=== PATIENT | male | born 1960 | race Caucasian/White ===

== ENCOUNTER → 2016-05-24 | Outpatient (CLI) | payer BC ==
--- NOTE | 2016-05-24 16:01 | CT ---
EXAMINATION TYPE: CT sinus wo con DATE OF EXAM: 05/24/2016 3:51 PM COMPARISON: NONE HISTORY: chronic sinus infections for 2-[address] DLP: 641.6 mGycm CONTRAST: None The paranasal sinuses are examined in the axial plane at 2 mm thick sections. Reconstructed images i n the coronal plane were obtained. There is dental amalgam scatter artifact There is minimal apical thickening inferior maxillary sinuses. The ethmoid air cells are clear. The sphenoid sinuses are clear. The frontal sinuses are clear. The septum is evaluated. There is septal deviation to the right. The ostiomeatal units are patent. IMPRESSIONS: 1. Minimal mucosal thickening maxillary sinuses.
== END | disposition home or self-care (01) ==
LOC: RADCTMAIN 15:26
PROVIDERS: ATTEND Otolaryngology
DX: J32.0 Chronic maxillary sinusitis (principal)
CPT/HCPCS: 70486

== ENCOUNTER → 2017-12-16 | Outpatient (CLI) | payer OTHER | END | disposition home or self-care (01) | LOC: LABWHC1 08:20 | PROVIDERS: ATTEND Internal Medicine | DX: E10.65 Type 1 diabetes mellitus with hyperglycemia (principal) | CPT/HCPCS: 36415; 83036 ==

== ENCOUNTER → 2018-04-23 | Outpatient (CLI) | payer OTHER ==
--- NOTE | 2018-04-23 07:44 | MR ---
EXAMINATION TYPE: MR lumbar spine wo con DATE OF EXAM: 04/23/2018 6:49 AM COMPARISON: NONE HISTORY: Sciatica CONTRAST: None Multiplanar, MultiSpin echo imaging of the lumbar spine was performed. L1-L2: Moderate disc desiccation. No significant disc bulging. No herniation protrusion or canal sten osis. L1 hemangioma noted. Foramina are patent. L2-L3: Moderate disc desiccation. No significant disc bulging. No herniation protrusion or canal sten osis. Foramina are patent. L3-L4: Moderate disc desiccation. Mild circumferential disc bulge. Mild effacement ventral thecal sac . Degenerative endplate marrow change. Schmorl node noted. No herniation protrusion or canal stenosis . Foramina are patent. L4-L5: Moderate disc desiccation. Circumferential disc bulge greatest posteriorly. Mild effacement ve ntral thecal sac. Facet joint arthropathy. No evidence for central stenosis or disc herniation. Bilat eral foraminal encroachment is noted to moderate in degree. Generative endplate marrow change identif ied. L5-S1: Severe disc desiccation. Grade 1 anterolisthesis L5 on S1 measuring 6 mm. Circumferential disc bulge greatest posteriorly with effacement of the ventral thecal sac. No evidence for central stenos is. Severe facet joint arthropathy with bilateral foraminal encroachment left greater than right. Lumbar segments are intact. No paraspinal masses are identified. Conus medullaris has a normal appe arance. There is ventral spondylosis. Multilevel degenerative endplate marrow change. Right-sided moreno al cyst upper pole measuring 1.5 cm. IMPRESSION: 1. Multilevel degenerative disc disease as discussed. 2. Grade 1 anterolisthesis L5 on S1. 3. Varying degrees of foraminal encroachment.
== END ==
LOC: RADMRIMAIN 06:03
PROVIDERS: ATTEND Family Medicine
DX: M43.17 Spondylolisthesis, lumbosacral region (principal); M51.16 Intervertebral disc disorders with radiculopathy, lumbar region
CPT/HCPCS: 72148

== ENCOUNTER → 2018-07-14 | Outpatient (CLI) | payer OTHER ==
[2018-07-14 16:34] LABS: Albumin 4.2 g/dL (3.80-4.90); Albumin/Globulin Ratio 1.83 (1.60-3.17); Calcium 9.4 mg/dL (8.7-10.3); Globulin 2.3 g/dL (1.6-3.3); LDL Cholesterol,Calculated 128.8 mg/dL (0.0-131.0); Potassium 4.3 mmol/L (3.5-5.5); Total Protein 6.5 g/dL (6.2-8.2); VLDL Calculation 26.2 mg/dL (5.00-40.00)
[2018-07-17 09:45] LABS: Hemoglobin A1C 5.3
== END | disposition home or self-care (01) ==
LOC: LABWHC1 08:16
PROVIDERS: ATTEND Internal Medicine
DX: E10.65 Type 1 diabetes mellitus with hyperglycemia (principal)
CPT/HCPCS: 36415; 80053; 80061; 82043; 82306; 82570; 82985; 83036; 84439; 84443

== ENCOUNTER 2018-11-12 07:41 | Day surgery (SDC) | payer OTHER ==
[2018-11-06 10:01] VITALS: BMI 34.2
[~2018-11-12 07:41] MED LIST: LACTATED RINGERS 1,000 ML IV SCH; LIDOCAINE 1% 20 ML VIAL (10MG/ML) FOR IV START INTRADERMA PRN
[2018-11-12 08:11] VITALS: RESP 18; TEMP 97.8
[2018-11-12 08:18] LABS: Glucose,Whole Blood 169 mg/dL (75-99)
[2018-11-12] MEDS ORDERED: LIDOCAINE 1% 20 ML VIAL (10MG/ML) FOR IV START INTRADERMA ONE (08:19)
[2018-11-12] MEDS ORDERED: LACTATED RINGERS 1,000 ML IV ONE (08:19)
[2018-11-12] MEDS ORDERED: PROPOFOL 10 MG/ML 20 ML VIAL IV ONE (08:56)
--- NOTE | 2018-11-12 09:03 | P.GSHP ---
History of Present Illness H&P Date: 11/12/18 Chief Complaint: History of colon polyps This a 58-year-old male presents today for colonoscopy. Patient has had previous colonoscopies. He is known to have colon polyps. His last colonoscopy 5 years ago. Past Medical History Past Medical History: Diabetes Mellitus, Hypertension, Osteoarthritis (OA) Additional Past Medical History / Comment(s): ALLERGIES, ARTHRITIS WITH BACK PAIN, HX OF COLON POLYPS, DIABETES WITH INSULIN PUMP. History of Any Multi-Drug Resistant Organisms: None Reported Past Surgical History: No Surgical Hx Reported Additional Past Surgical History / Comment(s): COLONOSCOPY Past Anesthesia/Blood Transfusion Reactions: No Reported Reaction Past Psychological History: Anxiety, Depression Smoking Status: Never smoker Past Alcohol Use History: Rare Past Drug Use History: None Reported - Past Family History Brother(s) Family Medical History: Cancer Medications and Allergies Home Medications Medication Instructions Recorded Confirmed Type Cholecalciferol (Vitamin D3) 1,000 unit PO DAILY 11/06/18 11/06/18 History [Vitamin D3] Fexofenadine HCl [Camille Allergy] 180 mg PO DAILY 11/06/18 11/06/18 History Gabapentin [Neurontin] 800 mg PO HS 11/06/18 11/06/18 History Ibuprofen [Motrin Ib] 400 mg PO DAILY 11/06/18 11/06/18 History Insulin Aspart (For Pump) [NovoLOG 0 unit SQ-PUMP CONTINUOUS PRN 11/06/18 11/06/18 History (For Pump)] Lisinopril [Zestril] 10 mg PO DAILY 11/06/18 11/06/18 History Sertraline [Zoloft] 50 mg PO DAILY 11/06/18 11/06/18 History metFORMIN HCL [Glucophage] 1,000 mg PO BID 11/06/18 11/06/18 History Allergies Allergy/AdvReac Type Severity Reaction Status Date / Time exenatide [From Bydureon] Allergy Severe Hives, Verified 11/06/18 09:48 Swelling, Hospital Tx. Surgical - Exam Vital Signs Temp Pulse Resp BP Pulse Ox 97.8 F 61 18 137/65 100 11/12/18 08:09 11/12/18 08:09 11/12/18 08:09 11/12/18 08:09 11/12/18 08:09 - General well developed, well nourished, no distress - Eyes PERRL - ENT normal pinna - Neck no masses - Respiratory normal expansion - Cardiovascular Rhythm: regular - Abdomen Abdomen: soft, non tender Results - Labs Abnormal Lab Results - Last 24 Hours (Table) 11/12/18 Range/Units 08:17 POC Glucose (mg/dL) 169 H (75-99) mg/dL Assessment and Plan Assessment: History of colon polyps. We'll perform colonoscopy.
--- NOTE | 2018-11-12 09:17 | P.OP ---
Date of Procedure: 11/12/18 Preoperative Diagnosis: History of colon polyps Postoperative Diagnosis: Right colon polyp Procedure(s) Performed: Colonoscopy Anesthesia: MAC Surgeon: Shahzad Yanez Pathology: other (Right colon polyp) Condition: stable Disposition: PACU Description of Procedure: The patient's placed on the endoscopy table in the lateral position. He received IV sedation. Digital rectal exam was performed which revealed no abnormalities. Flexible colonoscope was then placed patient anus and passed throughout the entire colon. The ileocecal valve sutures. Cecum appeared normal. In the right colon there was a polyp seen this removed with the cold forcep. Scope was withdrawn the remainder of the ascending colon, transverse colon appeared normal. In the descending colon and sigmoid colon was a few scattered diverticula. Scope was then brought back the rectum and this appeared normal. Scope was withdrawn from patient.
[2018-11-12 09:34] VITALS: BP 112/64; PULSE 59
[2018-11-12 09:41] LABS: Glucose,Whole Blood 151 mg/dL (75-99)
== END 2018-11-12 10:04 | disposition home or self-care (01) ==
LOC: ORWHC2ENDO 07:41
PROVIDERS: ATTEND Surgery
DX: D12.2 Benign neoplasm of ascending colon (principal); K57.30 Diverticulosis of large intestine without perforation or abscess without bleeding; Z86.010 Personal history of colon polyps; E11.9 Type 2 diabetes mellitus without complications; I10 Essential (primary) hypertension; M19.90 Unspecified osteoarthritis, unspecified site; Z79.4 Long term (current) use of insulin; Z79.899 Other long term (current) drug therapy; Z79.1 Long term (current) use of non-steroidal anti-inflammatories (NSAID); F41.9 Anxiety disorder, unspecified; F32.9 Major depressive disorder, single episode, unspecified; Z88.8 Allergy status to other drugs, medicaments and biological substances
CPT/HCPCS: 88305; 45380; J2704

== ENCOUNTER → 2019-05-25 | Outpatient (CLI) | payer OTHER ==
[2019-05-25 13:41] LABS: Chol/HDL Ratio 5.27; LDL Cholesterol,Calculated 144.4 mg/dL (0.0-131.0); VLDL Calculation 30.6 mg/dL (5.00-40.00)
[2019-05-25 13:43] LABS: Urine Creatinine 99.5 mg/dL
[2019-05-27 09:45] LABS: Hemoglobin A1C 5.8
== END | disposition home or self-care (01) ==
LOC: LABWHC1 08:10
PROVIDERS: ATTEND Internal Medicine
DX: E10.65 Type 1 diabetes mellitus with hyperglycemia (principal); E55.9 Vitamin D deficiency, unspecified
CPT/HCPCS: 36415; 80061; 82043; 82306; 82570; 83036

== ENCOUNTER → 2020-04-13 | Outpatient (CLI) | payer OTHER ==
--- NOTE | 2020-04-14 17:01 | MR ---
MRI left foot HISTORY: Bone lesion Multiplanar multisequence imaging obtained through the left foot No plain film is available for correlation At the level of the first digit there is remodeling at the metatarsophalangeal joint, overhanging edg e is questioned on coronal image #12, 13 on series 901 and 1001, sagittal image 18 series 301. There is degenerative change with joint space loss present at this level. Surrounding tissue showed T1 inte rmediate, T2 bright signal, there is soft tissue swelling present. IMPRESSION: Findings could possibly represent gout, infection not excluded. Follow-up is recommended.
== END | disposition home or self-care (01) ==
LOC: RADMRIMAIN 06:04
PROVIDERS: ATTEND Podiatrist Foot & Ankle Surgery
DX: M89.9 Disorder of bone, unspecified (principal)

== ENCOUNTER 2021-08-15 04:44 | Emergency (ER) | payer BC, OTHER ==
[2021-08-15 04:51] VITALS: TEMP 98.3
[2021-08-15 05:18] LABS: Basophils # (A) 0.1 k/uL (0-0.2); Basophils % (A) 1 %; Eosinophils # (A) 0.2 k/uL (0-0.7); Eosinophils % (A) 2 %; HCT 45.1 % (39.0-53.0); HGB 14.4 gm/dL (13.0-17.5); Lymphocytes # (A) 1.5 k/uL (1.0-4.8); Lymphocytes % (A) 12 %; MCH 28.8 pg (25.0-35.0); MCV 90.1 fL (80.0-100.0); Mean Platelet Volume 7.4; Monocytes # (A) 0.6 k/uL (0-1.0); Monocytes % (A) 5 %; Neutrophils # (A) 9.7 k/uL (1.3-7.7); Neutrophils % (A) 79 %; Platelet Count 211 k/uL (150-450); RDW 12.9 % (11.5-15.5); WBC 12.2 k/uL (3.8-10.6)
[2021-08-15] MEDS ORDERED: AZITHROMYCIN 500 MG TAB PO STA (05:24)
--- NOTE | 2021-08-15 05:25 | XR ---
EXAMINATION TYPE: XR chest 1V portable DATE OF EXAM: 08/15/2021 COMPARISON: NONE HISTORY: Short of breath TECHNIQUE: Single view FINDINGS: Heart and mediastinum are normal. There is some airspace consolidation right lower lobe. Le ft lung is clear. No heart failure. There are no hilar masses. There are chest leads. No evidence of pleural effusion. IMPRESSION: Right lower lobe pneumonia. Normal heart.
[2021-08-15 05:28] LABS: INR 0.9 (<1.2); Prothrombin Time 10.3 sec (9.0-12.0)
[2021-08-15 05:30] LABS: ALT 25 U/L (4-49); AST 33 U/L (17-59); African American GFR (CKD) >90 (>60 ml/min/1.73 sqM); Alkaline Phosphatase 102 U/L (38-126); Anion Gap 12 mmol/L; Blood Urea Nitrogen 19 mg/dL (9-20); Calcium 8.7 mg/dL (8.4-10.2); Carbon Dioxide 18 mmol/L (22-30); Chloride 103 mmol/L (98-107); Glucose 350 mg/dL (74-99); Non-African American GFR(CKD) >90 (>60 ml/min/1.73 sqM); Potassium 4.6 mmol/L (3.5-5.1); Sodium 133 mmol/L (137-145); Total Bilirubin 0.9 mg/dL (0.2-1.3); Total Protein 7.2 g/dL (6.3-8.2)
--- NOTE | 2021-08-15 06:35 | ED ---
SOB HPI - General Chief Complaint: Shortness of Breath Stated Complaint: fall, SOB Time Seen by Provider: 08/15/21 05:23 Source: patient Mode of arrival: wheelchair Limitations: no limitations - History of Present Illness Initial Comments: 's patient is a 61-year-old man who presents to be evaluated for shortness of breath that is been getting progressively worse over the past couple days. Patient notes that he did have his coronavirus booster on Monday. Patient has not noted fever or chills. He does have a little bit of cough but no sputum. Patient denies chest pain. No change in urination or bowel movements. No leg pain or swelling. MD Complaint: shortness of breath Onset/Timin -: days(s) Severity scale (1-10): 0 Consistency: constant Improves With: rest Worsens With: exertion Known History Of: diabetes Treatments Prior to Arrival: none - Related Data Home Oxygen Therapy: No Home Medications Medication Instructions Recorded Confirmed Cholecalciferol (Vitamin D3) 1,000 unit PO DAILY 11/06/18 11/06/18 [Vitamin D3] Fexofenadine HCl [Camille Allergy] 180 mg PO DAILY 11/06/18 11/06/18 Gabapentin [Neurontin] 800 mg PO HS 11/06/18 11/06/18 Ibuprofen [Motrin Ib] 400 mg PO DAILY 11/06/18 11/06/18 Insulin Aspart (For Pump) [NovoLOG 0 unit SQ-PUMP CONTINUOUS PRN 11/06/18 11/06/18 (For Pump)] Sertraline [Zoloft] 50 mg PO DAILY 11/06/18 11/06/18 lisinopriL [Zestril] 10 mg PO DAILY 11/06/18 11/06/18 metFORMIN HCL [Glucophage] 1,000 mg PO BID 11/06/18 11/06/18 Previous Rx's Medication Instructions Recorded Amoxicillin/Potassium Clav 1 tab PO Q12HR 1 Days #14 tab 08/15/21 [Augmentin 875-125 Tablet] Azithromycin [Zithromax Z-pack (6 250 mg PO DIRECTED #6 tab 08/15/21 tabs)] Allergies Allergy/AdvReac Type Severity Reaction Status Date / Time exenatide [From Bydureon] Allergy Severe Hives, Verified 08/15/21 04:51 Swelling, Hospital Tx. Review of Systems ROS Statement: Those systems with pertinent positive or pertinent negative responses have been documented in the HPI. ROS Other: All systems not noted in ROS Statement are negative. Constitutional: Denies: fever, chills, weakness Respiratory: Reports: cough, dyspnea Cardiovascular: Reports: dyspnea on exertion. Denies: chest pain, palpitations, orthopnea, edema, syncope Gastrointestinal: Denies: abdominal pain, vomiting, diarrhea, melena, hematochezia Genitourinary: Denies: dysuria, frequency Musculoskeletal: Denies: back pain Skin: Denies: rash Neurological: Denies: headache, weakness, numbness Past Medical History Past Medical History: Diabetes Mellitus, Hypertension, Osteoarthritis (OA), Prostate Disorder Additional Past Medical History / Comment(s): ALLERGIES, ARTHRITIS WITH BACK PAIN, HX OF COLON POLYPS, DIABETES WITH INSULIN PUMP. History of Any Multi-Drug Resistant Organisms: None Reported Past Surgical History: Prostate Surgery Additional Past Surgical History / Comment(s): COLONOSCOPY Past Anesthesia/Blood Transfusion Reactions: No Reported Reaction Past Psychological History: Anxiety, Depression Smoking Status: Never smoker Past Alcohol Use History: Rare Past Drug Use History: None Reported - Past Family History Brother(s) Family Medical History: Cancer General Exam Limitations: no limitations General appearance: alert, in no apparent distress Head exam: Present: atraumatic, normocephalic Eye exam: Present: normal appearance. Absent: scleral icterus, conjunctival injection Neck exam: Present: normal inspection Respiratory exam: Present: rales (Right lower lung field). Absent: respiratory distress (There is mild tachypnea), wheezes, rhonchi, stridor, accessory muscle use, decreased breath sounds Cardiovascular Exam: Present: regular rate, normal rhythm, normal heart sounds. Absent: systolic murmur, diastolic murmur, rubs, gallop GI/Abdominal exam: Present: soft. Absent: distended, tenderness, guarding, rebound, rigid, mass Extremities exam: Present: normal inspection, normal capillary refill. Absent: pedal edema, calf tenderness Back exam: Present: normal inspection. Absent: CVA tenderness (R), CVA tenderness (L) Neurological exam: Present: alert Skin exam: Present: warm, dry, intact, normal color. Absent: rash Course Vital Signs 08/15/21 08/15/21 04:45 06:00 Temperature 98.3 F Pulse Rate 95 89 Respiratory 24 24 Rate Blood Pressure 124/77 120/85 O2 Sat by Pulse 78 L 95 Oximetry Medical Decision Making - Medical Decision Making This patient is a 61-year-old man presenting with dyspnea and found to have clinically a right lower lobe infiltrate. Chest x-ray does confirm this. Labs do reveal mild elevation of troponin. The patient's ECG does look relatively good. And he is not having any pain. I did discuss with patient that the diabetes is risk factor for silent ischemia and given his borderline saturations and the underlying pneumonia strongly lobbied patient to stay but he is adamant that at this point he wants to go home. He does agree to return if the shortness of breath recurs if he develops any chest pain diaphoresis, nausea or vomiting, any other symptoms or feeling worse in anyway. Nursing staff and myself also ambulated the patient and his oxygen saturations did decrease and we again lobbied patient to stay but he states this point he is not going do that though he would return if his breathing is not right at home. - Lab Data Result diagrams: 08/15/21 05:09 08/15/21 05:09 Lab Results 08/15/21 08/15/21 08/15/21 Range/Units 05:04 05:09 05:09 WBC 12.2 H (3.8-10.6) k/uL RBC 5.00 (4.30-5.90) m/uL Hgb 14.4 (13.0-17.5) gm/dL Hct 45.1 (39.0-53.0) % MCV 90.1 (80.0-100.0) fL MCH 28.8 (25.0-35.0) pg MCHC 32.0 (31.0-37.0) g/dL RDW 12.9 (11.5-15.5) % Plt Count 211 (150-450) k/uL MPV 7.4 Neutrophils % 79 % Lymphocytes % 12 % Monocytes % 5 % Eosinophils % 2 % Basophils % 1 % Neutrophils # 9.7 H (1.3-7.7) k/uL Lymphocytes # 1.5 (1.0-4.8) k/uL Monocytes # 0.6 (0-1.0) k/uL Eosinophils # 0.2 (0-0.7) k/uL Basophils # 0.1 (0-0.2) k/uL PT 10.3 (9.0-12.0) sec INR 0.9 (<1.2) APTT 22.0 (22.0-30.0) sec Sodium (137-145) mmol/L Potassium (3.5-5.1) mmol/L Chloride (98-107) mmol/L Carbon Dioxide (22-30) mmol/L Anion Gap mmol/L BUN (9-20) mg/dL Creatinine (0.66-1.25) mg/dL Est GFR (CKD-EPI)AfAm (>60 ml/min/1.73 sqM) Est GFR (CKD-EPI)NonAf (>60 ml/min/1.73 sqM) Glucose (74-99) mg/dL Calcium (8.4-10.2) mg/dL Total Bilirubin (0.2-1.3) mg/dL AST (17-59) U/L ALT (4-49) U/L Alkaline Phosphatase (38-126) U/L Troponin I (0.000-0.034) ng/mL NT-Pro-B Natriuret Pep pg/mL Total Protein (6.3-8.2) g/dL Albumin (3.5-5.0) g/dL Coronavirus (PCR) Not Detected (Not Detectd) 08/15/21 08/15/21 08/15/21 Range/Units 05:09 05:09 05:09 WBC (3.8-10.6) k/uL RBC (4.30-5.90) m/uL Hgb (13.0-17.5) gm/dL Hct (39.0-53.0) % MCV (80.0-100.0) fL MCH (25.0-35.0) pg MCHC (31.0-37.0) g/dL RDW (11.5-15.5) % Plt Count (150-450) k/uL MPV Neutrophils % % Lymphocytes % % Monocytes % % Eosinophils % % Basophils % % Neutrophils # (1.3-7.7) k/uL Lymphocytes # (1.0-4.8) k/uL Monocytes # (0-1.0) k/uL Eosinophils # (0-0.7) k/uL Basophils # (0-0.2) k/uL PT (9.0-12.0) sec INR (<1.2) APTT (22.0-30.0) sec Sodium 133 L (137-145) mmol/L Potassium 4.6 (3.5-5.1) mmol/L Chloride 103 (98-107) mmol/L Carbon Dioxide 18 L (22-30) mmol/L Anion Gap 12 mmol/L BUN 19 (9-20) mg/dL Creatinine 0.83 (0.66-1.25) mg/dL Est GFR (CKD-EPI)AfAm >90 (>60 ml/min/1.73 sqM) Est GFR (CKD-EPI)NonAf >90 (>60 ml/min/1.73 sqM) Glucose 350 H (74-99) mg/dL Calcium 8.7 (8.4-10.2) mg/dL Total Bilirubin 0.9 (0.2-1.3) mg/dL AST 33 (17-59) U/L ALT 25 (4-49) U/L Alkaline Phosphatase 102 (38-126) U/L Troponin I 0.146 H* (0.000-0.034) ng/mL NT-Pro-B Natriuret Pep 987 pg/mL Total Protein 7.2 (6.3-8.2) g/dL Albumin 4.0 (3.5-5.0) g/dL Coronavirus (PCR) (Not Detectd) - EKG Data -: EKG Interpreted by Oh EKG shows normal: sinus rhythm, axis (Normal), intervals (Normal), QRS complexes (Normal), ST-T waves (Normal) Rate: normal (Rate 94 bpm) Disposition Clinical Impression: Pneumonia, Elevated troponin I level Disposition: Left Against Medical Advice Condition: Fair Instructions (If sedation given, give patient instructions): Pneumonia (ED) Prescriptions: Amoxicillin/Potassium Clav [Augmentin 875-125 Tablet] 1 tab PO Q12HR 1 Days #14 tab Azithromycin [Zithromax Z-pack (6 tabs)] 250 mg PO DIRECTED #6 tab Is patient prescribed a controlled substance at d/c from ED?: No Referrals: Roberto Starks MD [Primary Care Provider] - 1-2 days
[2021-08-15 07:11] VITALS: BP 127/77; PULSE 90; RESP 26
== END 2021-08-15 07:11 | disposition left against medical advice (07) ==
LOC: EC 04:44
DX: J18.9 Pneumonia, unspecified organism (principal); R79.89 Other specified abnormal findings of blood chemistry; E11.9 Type 2 diabetes mellitus without complications; I10 Essential (primary) hypertension; M19.90 Unspecified osteoarthritis, unspecified site; F41.9 Anxiety disorder, unspecified; F32.A Depression, unspecified; Z79.4 Long term (current) use of insulin; Z79.84 Long term (current) use of oral hypoglycemic drugs; Z20.822 Contact with and (suspected) exposure to COVID-19
CPT/HCPCS: 99285; 96365; 36415; 93005; 83880; 80053; 84484; 85025; 85610; 85730; 87635; 71045; J0696

== ENCOUNTER → 2023-10-16 | Outpatient (CLI) | payer BC ==
[2023-10-16 16:15] LABS: ALT 26 U/L (10-49); AST 21 U/L (14-35); Albumin 4.6 g/dL (3.8-4.9); Albumin/Globulin Ratio 1.92 Ratio (1.60-3.17); Alkaline Phosphatase 79 U/L (41-126); BUN/Creat Ratio 17.78 Ratio (12.00-20.00); Calcium 9.6 mg/dL (8.7-10.3); Carbon Dioxide 23.1 mmol/L (21.6-31.8); Chloride 103 mmol/L (96-109); Chol/HDL Ratio 4.57 Ratio; Globulin 2.4 g/dL (1.6-3.3); Glucose 216 mg/dL (70-110); LDL Cholesterol,Calculated 125.6 mg/dL (0.0-131.0); Potassium 4.7 mmol/L (3.5-5.5); Sodium 138 mmol/L (135-145); Total Bilirubin 0.5 mg/dL (0.3-1.2)
== END | disposition home or self-care (01) ==
LOC: LABWHC1 08:57
PROVIDERS: ATTEND Family Medicine
DX: E10.65 Type 1 diabetes mellitus with hyperglycemia (principal); E55.9 Vitamin D deficiency, unspecified
CPT/HCPCS: 36415; 80053; 80061; 82306; 83036